=== PATIENT | male | born 1960 | race Two or more races ===

== ENCOUNTER 2020-03-19 17:44 | Observation (INO) | payer BC ==
[~2020-03-19] VITALS: Ht 182.9 cm; Wt 131.3 kg
[~2020-03-19 17:44] MED LIST: ASPIRIN EC81 MG PO; CIPRO500 MG PO; HYDROCHLOROTH12.5 MG PO; MICARDIS40 MG PO; NORCO 5-325 TA1 EACH PO; SIMVASTATIN10 MG PO
--- NOTE | 2020-03-19 19:46 | EKG ---
[facility] [address] [facility] [address] [place] [address] Signed Normal sinus rhythm Normal ECG No previous ECGs available Confirmed by DAWIT MARI MD ([id number]) on 03/19/2020 7:46:01 PM Electronically Signed By: DAWIT MARI MD 03/19/20 194 PATIENT NAME: BREA CALIX Electrocardiogram DATE OF : 58 PHYSICIAN: DAWIT MARI MD REPORT #: [id number] REPORT IS CONFIDENTIAL AND NOT TO BE RELEASED WITHOUT AUTHORIZATION
--- NOTE | 2020-03-19 21:59 | NUR ---
PT HAS ARRIVED TO THE FLOOR FROM ED, PT WALKS TO THE BED AND TOLERATES WELL WITH NO ASSISTANCE, TOOK VITALS, STATISTICAL TYPIST IN TO MAKE ASSESSMENT, NO FURTHER NEEDS AT THIS TIME, URINAL AT BEDSIDE, CALL LIGHT IN REACH
--- NOTE | 2020-03-19 22:20 | NUR ---
PT ARRIVED FROM ER VIA STRETCHER. HE AMBULATED OVER TO BED SBA. VS TAKEN AND ENTERED AND PT DENIES PAIN AT THIS TIME. COMPLETED HISTORY AND MED REC, FRESH WATER AT BEDSIDE AND TELE IN PLACE. PRIMARY RN QUINTIN NOW IN ROOM.
--- NOTE | 2020-03-20 | NUR ---
PT RESTING IN BED, EYES CLOSED. RR EVEN, UNLABORED. CALL LIGHT IN REACH.
--- NOTE | 2020-03-20 02:18 | NUR ---
in rm with rn to get vitals, fresh ice water given, no further needs at this time
--- NOTE | 2020-03-20 03:04 | NUR ---
VS AND I&O COMPLETED. ASSESSMENT COMPLETED. PT IS AMBULATING WELL IN ROOM. GCS 15, A&O X4. PT REPORTS NO CHANGES TO NUMBNESS IN RIGHT FOOT AND LEG, PULSES AND MOTOR INTACT. CMS INTACT IN OTHER EXTREMITIES. TELE SR @ 68. ABD SOFT, NONTENDER, PT STATES NORMAL. BOWEL TONES ACTIVE. LUNGS CLEAR, HEART TONES REGULAR. NO OTHER NEEDS AT THIS TIME. CALL LIGHT IN REACH.
--- NOTE | 2020-03-20 04:00 | NUR ---
PT RESTING IN BED, EYES CLOSED. RR EVEN, UNLABORED. CALL LIGHT IN REACH.
--- NOTE | 2020-03-20 05:44 | NUR ---
VITALS AND I&OS DONE AND CHARTED. GARBAGES EMPTIED. BEDSIDE TABLE AND CALL LIGHT IN REACH. PT NEEDS NOTHING MORE AT THIS TIME.
--- NOTE | 2020-03-20 07:00 | NUR ---
HANDOFF REPORT RECEIVED FROM LABELING ASSOCIATE RN. PT AT MRI.
--- NOTE | 2020-03-20 08:50 | NUR ---
PT RESTING IN BED. PT ON ROOM AIR, LUNG SOUNDS CLEAR, DENIES SOB. PT DENIES PAIN. PT STATES PAIN IN RIGHT LEG IS GONE BUT LEG STILL FEELS SLIGHTLY NUMB AND "HEAVY". PULSES PALPABLE, GOOD STRENGTH IN ALL EXTREMITIES. PT DENIES NAUSEA, BOWEL TONES ACTIVE. IV SALINE LOCKED. PT CONSENTED FOR FLU VACCINE, ADMINISTERED TO RIGHT DELTOID. PT ASKING ABOUT DISCHARGE, DISCUSSED PLAN OF CARE FOR THE DAY.
--- NOTE | 2020-03-20 09:15 | NUR ---
PT RETURNED FROM MRI, COMMUNICATIONS PROGRAM MANAGER PLACED. PT DENIES OTHER NEEDS AT THIS TIME.
[2020-03-20] MEDS ORDERED: ALEVE220 MG PO (11:03)
--- NOTE | 2020-03-20 11:12 | NUR ---
MED REC COMPLETE
== END 2020-03-20 11:30 | disposition home or self-care (01) ==
LOC: ED 17:44 → MS 17:47
PROVIDERS: ADMIT Internal Medicine; ATTEND Internal Medicine
DX: I63.522 Cerebral infarction due to unspecified occlusion or stenosis of left anterior cerebral artery (principal); I10 Essential (primary) hypertension; E78.5 Hyperlipidemia, unspecified; M48.061 Spinal stenosis, lumbar region without neurogenic claudication; R20.0 Anesthesia of skin; E78.00 Pure hypercholesterolemia, unspecified; Z79.899 Other long term (current) drug therapy; Z79.82 Long term (current) use of aspirin; Z20.828 Contact with and (suspected) exposure to other viral communicable diseases
CPT/HCPCS: 36415; 70450; 70496; 70498; 70551; 72131; 72148; 80048; 80053; 83735; 84484; 85025; 85651; 90686; 93005; 93010; 96374; 97162; 99285-25; C9803; G0008; G0378; J1100; Q9967; U0003

== ENCOUNTER 2021-12-16 13:09 | Emergency (ER) | payer OTHER ==
[~2021-12-16] VITALS: Ht 182.9 cm; Wt 131.1 kg
[~2021-12-16 13:09] MED LIST changes: +ALEVE220 MG PO
[2021-12-16] MEDS ORDERED: MELOXICAM5 MG PO (13:39)
== END 2021-12-16 14:43 | disposition home or self-care (01) ==
LOC: ED 13:09
DX: H53.9 Unspecified visual disturbance (principal); I10 Essential (primary) hypertension; E78.00 Pure hypercholesterolemia, unspecified; Z79.899 Other long term (current) drug therapy; Z79.82 Long term (current) use of aspirin
CPT/HCPCS: 99283

== ENCOUNTER 2022-11-24 14:25 | Emergency (ER) | payer OTHER ==
[~2022-11-24] VITALS: Ht 175.3 cm; Wt 126.1 kg
--- OUTSIDE RECORDS SUMMARY | ~2022-11-24 | XMS | Continuity of Care Document ---
Demographics + + + | Address | [address] | | | [place] [address] | + + + | Preferred Language | Unknown | + + + | Marital Status | Never | + + + | Sikh Affiliation | Unknown | + + + | Race | Unknown | + + + | Ethnic Group | Not or | + + + Author + + + | Author | [facility] | + + + | Organization | [facility] | + + + | Address | [address] | | | [place] [address] | + + + | Phone | | + + + Care Team Providers + + + + | Care Civil Engineering Designer Name | Role | Phone | + + + + Unavailable | Unavailable | + + + + Unavailable | Unavailable | + + + + Allergies and Intolerances + + + + + + | date | description | facility | reaction | severity | + + + + + + | (no date) | No Known | [facility] | (no reaction) | (no severity) | | | Allergies | | | | + + + + + + Encounters No information. Functional Status No information. Immunizations + + + + | date | description | facility | + + + + | 2020-03-20 00:00 | Influenza, Injectable, | [facility] | | | Quadrivalent, Preservative | | + + + + Medications + + + + | date | description | facility | + + + + | 2021-12-20 00:00 | Meloxicam, Submicronized | [facility] | + + + + | 2021-12-20 00:00 | ASPIRIN | [facility] | + + + + | 2021-12-20 00:00 | HYDROCHLOROTHIAZIDE | [facility] | + + + + | 2021-12-20 00:00 | NAPROXEN SODIUM | [facility] | + + + + Problems + + + + | date | description | facility | + + + + | 2014-03-21 00:00 | Epididymitis | [facility] | + + + + | 2020-03-19 00:00 | Weakness | [facility] | + + + + | 2021-06-15 09:54 | SCIATICA, RIGHT SIDE | [facility] | + + + + | 2021-06-15 09:54 | MUSCLE WEAKNESS | [facility] | | | (GENERALIZED) | | + + + + | 2021-06-15 09:54 | POSTLAMINECTOMY SYNDROME, | [facility]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 Results/Labs No information. Social History No information. Vital Signs + + + +---------+ | date | measurement | value | units | + + + +---------+ | 2021-12-16 00:00 | BMI | 39.2 | kg/m2 | + + + +---------+ | 2021-12-16 00:00 | BP_diastolic | 72 | mmHg | + + + +---------+ | 2021-12-16 00:00 | BP_systolic | 118 | mmHg | + + + +---------+ | 2021-12-16 00:00 | heart_rate | 61 | /min | + + + +---------+ | 2021-12-16 00:00 | height_metric | 182.88 | cm | + + + +---------+ | 2021-12-16 00:00 | height_standard | 72 | in | + + + +---------+ | 2021-12-16 00:00 | o2_saturation | 96 | % | + + + +---------+ | 2021-12-16 00:00 | respiration_rate | 16 | /min | + + + +---------+ | 2021-12-16 00:00 | temperature_metric | 37.06 | C | | | | | | + + + +---------+ | 2021-12-16 00:00 | | 98.7 | F | | | temperature_standar | | | | | d | | | + + + +---------+ | 2021-12-16 00:00 | weight_metric | 131.09 | kg | + + + +---------+ | 2021-12-16 00:00 | weight_standard | 289 | lb | + + + +---------+"
--- OUTSIDE RECORDS SUMMARY | ~2022-11-24 | XMS | Continuity of Care Document ---
Demographics + + + | Address | [address] | | | [place] [address] | + + + | Preferred Language | Unknown | + + + | Marital Status | Never | + + + | Latter Day Affiliation | Unknown | + + + | Race | Unknown | + + + | Ethnic Group | Not or | + + + Author + + + | Author | [facility] | + + + | Organization | [facility] | + + + | Address | [address] | | | [place] [address] | + + + | Phone | | + + + Care Team Providers + + + + | Care Telecommunications Field Technician Name | Role | Phone | + [...] | 2020-03-20 00:00 | Influenza, Injectable, | [facility] | | | Quadrivalent, Preservative | | + + + + Medications + + + + | date | description | facility | + + + + | 2021-12-20 00:00 | Meloxicam, Submicronized | [facility] | + + + + | 2021-12-20 00:00 | ASPIRIN | [facility] | + + + + | 2021-12-20 00:00 | HYDROCHLOROTHIAZIDE | [facility] | + + + + | 2021-12-20 00:00 | NAPROXEN SODIUM | [facility] | + + + + Problems + + + + | date | description | facility | + + + + | 2014-03-21 00:00 | Epididymitis | [facility] | + + + + | 2020-03-19 00:00 | Weakness | [facility] | + + + + | 2021-06-15 [...] 2021-12-16 00:00 | Change in vision | [facility] | + + + + | 2022-11-02 [...]
[~2022-11-24 14:25] MED LIST changes: +MELOXICAM5 MG PO
[2022-11-24] MEDS ORDERED: LIPITOR40 MG (15:49)
[2022-11-24] MEDS ORDERED: GABAPENTIN600 MG PO (15:49)
[2022-11-24] MEDS ORDERED: FLOMAX0.4 MG (15:50)
[2022-11-24] MEDS ORDERED: DIOVAN40 MG (15:51)
[2022-11-24] MEDS ORDERED: OCREVUS300 MG/10 (15:51)
[2022-11-24 19:04] VITALS: BP 126/64
--- NOTE | 2022-11-26 06:02 | EKG ---
[facility] [address] [address] [place] [address] Signed Normal sinus rhythm When compared with ECG of 19-MAR-2020 18:20, No significant change was found Confirmed by AMY MENSAH MD ([id number]) on 11/26/2022 6:02:22 AM Electronically Signed By: AMY MENSAH 11/26/22 0602 PATIENT NAME: BREA CALIX Electrocardiogram DATE OF : 58 PHYSICIAN: AMY MENSAH REPORT #: [id number] REPORT IS CONFIDENTIAL AND NOT TO BE RELEASED WITHOUT AUTHORIZATION
== END 2022-11-24 19:04 | disposition home or self-care (01) ==
LOC: ED 14:25
DX: G35 Multiple sclerosis (principal); I10 Essential (primary) hypertension; E78.00 Pure hypercholesterolemia, unspecified; Z79.82 Long term (current) use of aspirin; Z79.899 Other long term (current) drug therapy
CPT/HCPCS: 36415; 70450; 70496; 70498; 70551; 80053; 84484; 85025; 93005; 93010; 99285 25; J2930; Q3014; Q9967